=== PATIENT | female | born 1990 | race African-American/Black ===

== ENCOUNTER 2018-02-21 11:19 | Emergency (ER) | payer BC ==
[~2018-02-21] VITALS: Ht 165.1 cm; Wt 68.0 kg
[2018-02-21] MEDS ORDERED: OFLO5DRO EACHEYE (13:42)
--- NOTE | 2018-02-21 13:42 | PHYS DOC ---
Adult General Chief Complaint Chief Complaint: EYE PROBLEMS HPI HPI Patient is a 28 year old female who presents with erythema to the left eye with matting and yellow green drainage. She states that this is been ongoing for approximately 2 days. It has worsened and was matted shut this morning. She denies injury to the eye. She denies contact use. Review of Systems Review of Systems Constitutional: Denies fever or chills [] Eyes: See history of present illness HENT: Denies nasal congestion or sore throat [] Respiratory: Denies cough or shortness of breath [] Cardiovascular: No additional information not addressed in HPI [] Neurologic: Denies headache, focal weakness or sensory changes [] Endocrine: Denies polyuria or polydipsia [] All other systems were reviewed and found to be within normal limits, except as documented in this note. Allergies Allergies Allergies Coded Allergies Type Severity Reaction Last Updated Verified No Known Drug Allergies 02/21/18 No Physical Exam Physical Exam Constitutional: Well developed, well nourished, no acute distress, non-toxic appearance. [] HENT: Normocephalic, atraumatic, bilateral external ears normal, oropharynx moist, no oral exudates, nose normal. [] Eyes: PERRLA, EOMI, conjunctiva is edematous to left only, green/yellow discharge. [] Neck: Normal range of motion, no tenderness, supple, no stridor. [] Cardiovascular:Heart rate regular rhythm, no murmur [] Lungs & Thorax: Bilateral breath sounds clear to auscultation [] Neurologic: Alert and oriented X 3, normal motor function, normal sensory function, no focal deficits noted. [] Psychologic: Affect normal, judgement normal, mood normal. [] Current Patient Data Vital Signs Vital Signs Date Time Temp Pulse Resp B/P (MAP) Pulse Ox O2 Delivery O2 Flow Rate FiO2 02/21/18 13:50 98.3 75 16 105/57 (73) 100 Room Air 98.3 EKG EKG [] Radiology/Procedures Radiology/Procedures [] Course & Med Decision Making Course & Med Decision Making Pertinent Labs and Imaging studies reviewed. (See chart for details) [] Dragon Disclaimer Dragon Disclaimer This electronic medical record was generated, in whole or in part, using a voice recognition dictation system. Departure Departure Impression: Primary Impression: Conjunctivitis Disposition: 01 HOME, SELF-CARE Condition: STABLE Referrals: NO PCP (PCP) Patient Instructions: Bacterial Conjunctivitis Additional Instructions: Use the drops as directed. 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 Scripts Ofloxacin (OCUFLOX) 5 Ml Drops 1-2 DROP EACHEYE BID for conjunctivitis for 7 Days, #1 BOTTLE Prov: SUSAN MULTANI APRN 02/21/18 SUSAN MULTANI APRN Feb 21, 2018 13:42
[2018-02-21 13:50] VITALS: BP 105/57
== END 2018-02-21 14:05 | disposition home or self-care (01) ==
LOC: ER 11:19
DX: H10.9 Unspecified conjunctivitis (principal)
CPT/HCPCS: 99283